=== PATIENT | male | born 1975 | race Caucasian/White ===

== ENCOUNTER 2018-01-02 05:35 | Emergency (ER) | payer OTHER ==
[~2018-01-02] VITALS: Ht 177.8 cm; Wt 113.4 kg
[2018-01-02] MEDS ORDERED: NAPROSYN500 MG PO (08:26)
[2018-01-02] MEDS ORDERED: NORCO 5-325 TA1 EACH PO (08:26)
== END 2018-01-02 08:36 | disposition home or self-care (01) ==
LOC: ED 05:35
DX: S22.42XA Multiple fractures of ribs, left side, initial encounter for closed fracture (principal); X58.XXXA Exposure to other specified factors, initial encounter; Y93.89 Activity, other specified; Y92.89 Other specified places as the place of occurrence of the external cause; Y99.8 Other external cause status